=== PATIENT | male | born 1950 | race Caucasian/White ===

== ENCOUNTER 2016-04-22 11:11 | Emergency (ER) | payer MEDICARE, MEDICAID ==
--- NOTE | 2016-04-22 12:26 | CT ---
CT OF THE BRAIN WITHOUT CONTRAST: Date: 04/22/16 COMPARISON: None. HISTORY: Head injury with headache. TECHNIQUE: Multiple contiguous axial images were obtained in a CT of the brain without contrast. FINDINGS: The brain is normal in morphology and attenuation without focal lesions or confluent areas of infarc tion. There is no evidence of hydrocephalus, intracranial hemorrhage, or extra-axial fluid collectio n. The calvarium and overlying soft tissues are unremarkable. The visualized paranasal sinuses and mast oid air cells are well aerated. IMPRESSION: No evidence of acute intracranial abnormality. POS: [facility]
== END 2016-04-22 12:28 | disposition home or self-care (01) ==
LOC: MADERS 11:11
DX: S09.90XA Unspecified injury of head, initial encounter (principal); I10 Essential (primary) hypertension; J44.9 Chronic obstructive pulmonary disease, unspecified; F17.210 Nicotine dependence, cigarettes, uncomplicated; Z79.899 Other long term (current) drug therapy; W22.8XXA Striking against or struck by other objects, initial encounter
CPT/HCPCS: 70450

== ENCOUNTER 2016-04-30 20:59 | Emergency (ER) | payer MEDICARE, MEDICAID ==
[2016-04-30 21:29] LABS: #Basophils 0.1 thou/uL (0.0-0.2); #Eosinphils 0.3 thou/uL (0.0-0.7); #Lymphocytes 3.8 thou/uL (1.20-3.40); #Monocytes 1.5 thou/uL (0.11-0.59); #Neutrophils 9.6 thou/uL (1.40-6.50); %Basophils 0.5 % (0.0-1.0); %Eosinophils 1.9 % (0.0-10.0); %Lymphocytes 24.9 % (21.0-51.0); %Monocytes 9.7 % (0.0-10.0); Hemoglobin 14.8 g/dL (14.0-18.0); Mean Corpuscular HGB CONC 34.6 g/dL (32.0-36.0); Mean Corpuscular Hemoglobin 32.4 pg (27.0-31.0); Mean Corpuscular Volume 93.8 fl (80.0-94.0); Mean Platelet Volume 7.5 fL (7.4-10.4); Platelet Count 421 thou/uL (130-400); RBC Distribution Width 12.6 % (11.5-14.5); Red Blood Cell (RBC) Count 4.57 mill/uL (4.70-6.10); White Blood Cell (WBC) Count 15.2 thou/uL (4.8-10.8)
[2016-04-30 21:44] LABS: ALT (SGPT) 11 U/L (0-55); AST (SGOT) 18 U/L (5-34); Albumin 4.2 g/dL (3.4-4.8); Alkaline Phosphatase 101 U/L (40-150); Anion Gap 20 mmol/L (10-20); BUN (Urea Nitrogen) 12 mg/dL (8.4-25.7); Bilirubin, Total Less than 0.3 mg/dL (0.2-1.2); Calc. Creatinine Clearance 0 mL/min (70-130); Calcium 9.6 mg/dL (7.8-10.44); Carbon Dioxide 21 mmol/L (23-31); Chloride 100 mmol/L (98-107); Estimated GFR-MDRD 76; Globulin 3.7 g/dL (2.4-3.5); Glucose 119 mg/dL (80-115); Potassium 3.3 mmol/L (3.5-5.1); Protein, Total 7.9 g/dL (5.8-8.1); Sodium 138 mmol/L (136-145)
[2016-04-30 21:46] LABS: CKMB 1.6 ng/mL (0-6.6); Troponin I Less than 0.010 ng/mL (< 0.028)
--- NOTE | 2016-04-30 21:59 | RAD ---
EXAM: ONE VIEW CHEST 04/30/16 COMPARISON: 10/19/15 HISTORY: Dyspnea. FINDINGS: Portable upright chest: Normal cardiac silhouette. Pulmonary vessels and hilum are normal. The costophrenic angles are clear . Hyperinflation, without consolidation, or mass. No pneumothorax or osseous abnormality. IMPRESSION: Hyperinflation. Chronic changes. No acute cardiopulmonary process. POS: [facility]
[2016-04-30] MEDS ORDERED: predniSONE 20 MG TAB ONE (22:19)
[2016-04-30] MEDS ORDERED: Doxycycline 100 MG CAP ONE (22:19)
[2016-04-30] MEDS ORDERED: predniSONE 10 MG TAB ONE ×2 (22:21→22:22)
== END 2016-04-30 22:32 | disposition home or self-care (01) ==
LOC: MADERS 20:59
DX: J44.1 Chronic obstructive pulmonary disease with (acute) exacerbation (principal); J40 Bronchitis, not specified as acute or chronic; I10 Essential (primary) hypertension; F17.210 Nicotine dependence, cigarettes, uncomplicated; Z79.899 Other long term (current) drug therapy
CPT/HCPCS: 71010; 80053; 82553; 83880; 84484; 85025; 93005; J7506; J7512; J7620

== ENCOUNTER 2016-06-21 08:01 | Emergency (ER) | payer MEDICARE, MEDICAID ==
[2016-06-21 09:19] LABS: #Basophils 0.2 thou/uL (0.0-0.2); #Eosinphils 0.5 thou/uL (0.0-0.7); #Lymphocytes 1.6 thou/uL (1.20-3.40); #Neutrophils 8.7 thou/uL (1.40-6.50); %Basophils 1.4 % (0.0-1.0); %Lymphocytes 13.5 % (21.0-51.0); %Monocytes 8.3 % (0.0-10.0); %Neutrophils 72.7 % (42.0-75.0); ALT (SGPT) 19 U/L (0-55); AST (SGOT) 24 U/L (5-34); Albumin 4.1 g/dL (3.4-4.8); Alkaline Phosphatase 64 U/L (40-150); Anion Gap 14 mmol/L (10-20); BUN (Urea Nitrogen) 13 mg/dL (8.4-25.7); Bilirubin, Total 0.3 mg/dL (0.2-1.2); Calc. Creatinine Clearance 0 mL/min (70-130); Calcium 9.3 mg/dL (7.8-10.44); Carbon Dioxide 27 mmol/L (23-31); Chloride 107 mmol/L (98-107); Estimated GFR-MDRD 81; Globulin 2.9 g/dL (2.4-3.5); Glucose 131 mg/dL (80-115); Hemoglobin 15.1 g/dL (14.0-18.0); Mean Corpuscular HGB CONC 33.1 g/dL (32.0-36.0); Mean Corpuscular Hemoglobin 33.2 pg (27.0-31.0); Mean Corpuscular Volume 100.3 fl (80.0-94.0); Mean Platelet Volume 8.3 fL (7.4-10.4); Platelet Count 326 thou/uL (130-400); RBC Distribution Width 13.6 % (11.5-14.5); Red Blood Cell (RBC) Count 4.55 mill/uL (4.70-6.10); Sodium 144 mmol/L (136-145)
--- NOTE | 2016-06-21 09:35 | RAD ---
EXAM: CHEST 2 VIEWS: HISTORY: Dyspnea. COMPARISON: 04/30/16. FINDINGS: Normal cardiac silhouette. The pulmonary vessels and hilum are normal. Costophrenic angles are manda ar. Hyperinflation with chronic changes. No consolidation or mass. No pneumothorax or osseous abn ormalities. IMPRESSION: Hyperinflation. Chronic changes. POS: [facility]
== END 2016-06-21 10:05 | disposition home or self-care (01) ==
LOC: MADERS 08:01
DX: J44.1 Chronic obstructive pulmonary disease with (acute) exacerbation (principal); I10 Essential (primary) hypertension; F17.210 Nicotine dependence, cigarettes, uncomplicated; Z79.899 Other long term (current) drug therapy
CPT/HCPCS: 36415; 71020; 80053; 85025; J7620

== ENCOUNTER 2016-08-01 06:07 | Emergency (ER) | payer MEDICARE, MEDICAID ==
[2016-08-01] MEDS ORDERED: Sodium Chloride 0.9% 100 ML BAG ONE (06:28)
[2016-08-01] MEDS ORDERED: methylPREDNISolone Sod Succ/PF 125 MG/2 ML VIAL ONE (06:45)
[2016-08-01] MEDS ORDERED: Dexamethasone 10 MG/ML VIAL ONE (06:45)
[2016-08-01] MEDS ORDERED: cefTRIAXone\\ROCEPHIN 1 GM VIAL ONE (06:45)
[2016-08-01 07:09] LABS: #Basophils 0.1 thou/uL (0.0-0.2); #Eosinphils 0.2 thou/uL (0.0-0.7); #Lymphocytes 2.7 thou/uL (1.20-3.40); #Monocytes 1.2 thou/uL (0.11-0.59); %Basophils 0.7 % (0.0-1.0); %Eosinophils 2.4 % (0.0-10.0); %Lymphocytes 26.2 % (21.0-51.0); %Monocytes 11.6 % (0.0-10.0); Hemoglobin 15.2 g/dL (14.0-18.0); Mean Corpuscular HGB CONC 34.3 g/dL (32.0-36.0); Mean Corpuscular Hemoglobin 33.3 pg (27.0-31.0); Mean Corpuscular Volume 97.1 fl (80.0-94.0); Platelet Count 393 thou/uL (130-400); RBC Distribution Width 13.4 % (11.5-14.5); Red Blood Cell (RBC) Count 4.55 mill/uL (4.70-6.10); White Blood Cell (WBC) Count 10.1 thou/uL (4.8-10.8)
[2016-08-01 07:13] LABS: ALT (SGPT) 25 U/L (8-55); AST (SGOT) 20 U/L (5-34); Alkaline Phosphatase 61 U/L (40-150); Anion Gap 17 mmol/L (10-20); BUN (Urea Nitrogen) 15 mg/dL (8.4-25.7); Bilirubin, Total Less than 0.3 mg/dL (0.2-1.2); CK (CPK) 67 U/L (30-200); Calc. Creatinine Clearance 0 mL/min (70-130); Calcium 9.2 mg/dL (7.8-10.44); Carbon Dioxide 23 mmol/L (23-31); Chloride 109 mmol/L (98-107); Estimated GFR-MDRD 84; Globulin 2.7 g/dL (2.4-3.5); Glucose 89 mg/dL (80-115); Potassium 3.7 mmol/L (3.5-5.1); Protein, Total 6.7 g/dL (5.8-8.1); Sodium 145 mmol/L (136-145)
[2016-08-01 07:19] LABS: CKMB 1.8 ng/mL (0-6.6); Troponin I Less than 0.010 ng/mL (< 0.028)
--- NOTE | 2016-08-01 08:33 | RAD ---
CHEST 1 VIEW: HISTORY: Shortness of breath while on antibiotics and steroids for 1 week. COMPARISON: Chest 1 view 07/26/16. FINDINGS: Lungs are hyperinflated. No pneumothorax or effusion. No focal airspace consolidation or pneumotho rax. Cardiac silhouette and mediastinal contours are similar. IMPRESSION: Obstructive pulmonary disease without acute intrathoracic abnormality. POS: [facility]
== END 2016-08-01 08:30 | disposition home or self-care (01) ==
LOC: MADERS 06:07
DX: J44.1 Chronic obstructive pulmonary disease with (acute) exacerbation (principal); I10 Essential (primary) hypertension; F17.210 Nicotine dependence, cigarettes, uncomplicated; Z79.899 Other long term (current) drug therapy; Z79.82 Long term (current) use of aspirin; Z79.2 Long term (current) use of antibiotics
CPT/HCPCS: 36415; 71010; 80053; 82553; 83880; 84484; 85025; 93005; 94640; 94760; 96365; 96372; 96374; 96375; J0696; J1040; J1100; J2930; J7050; J7620

== ENCOUNTER 2016-08-05 05:51 | Emergency (ER) | payer MEDICARE, MEDICAID ==
[2016-08-05] MEDS ORDERED: Ondansetron HCl/PF 4 MG/2 ML Vial ONE (05:59)
[2016-08-05] MEDS ORDERED: methylPREDNISolone Sod Succ/PF 125 MG/2 ML VIAL ONE (05:59)
[2016-08-05] MEDS ORDERED: Albuterol Sulfate 2.5 mg/0.5 ml Neb ONE (06:00)
[2016-08-05 06:25] LABS: Hemoglobin 15.4 g/dL (14.0-18.0); Red Blood Cell (RBC) Count 4.78 mill/uL (4.70-6.10); White Blood Cell (WBC) Count 11.7 thou/uL (4.8-10.8)
[2016-08-05 06:26] LABS: Manual Diff?? YES; Mean Corpuscular HGB CONC 32.5 g/dL (32.0-36.0); Mean Corpuscular Hemoglobin 32.1 pg (27.0-31.0); Mean Corpuscular Volume 98.9 fL (80.0-94.0); Mean Platelet Volume 7.9 fL (7.4-10.4); Platelet Count 384 thou/uL (130-400); RBC Distribution Width 13.5 % (11.5-14.5)
[2016-08-05 06:29] LABS: Band 2 % (5-11); Eosinophils 1 % (0-10); Lymphocytes 14 % (21-51); MDiff Complete? YES; Monocytes 10 % (0-10); Neutrophil 73 % (42-75); PLT Morphology Comment Appears Adequate
[2016-08-05 06:30] LABS: Large Platelets SLIGHT; RBC Morphology Normal
[2016-08-05 06:31] LABS: ALT (SGPT) 21 U/L (8-55); AST (SGOT) 19 U/L (5-34); Albumin 4.4 g/dL (3.4-4.8); Alcohol 52 mg/dL (Less than 10); Alkaline Phosphatase 61 U/L (40-150); Anion Gap 18 mmol/L (10-20); BUN (Urea Nitrogen) 21 mg/dL (8.4-25.7); Bilirubin, Total Less than 0.3 mg/dL (0.2-1.2); Calc. Creatinine Clearance 0 mL/min (70-130); Calcium 9.4 mg/dL (7.8-10.44); Carbon Dioxide 24 mmol/L (23-31); Chloride 106 mmol/L (98-107); Estimated GFR-MDRD 70; Glucose 111 mg/dL (80-115); Protein, Total 7.4 g/dL (5.8-8.1); Sodium 144 mmol/L (136-145)
[2016-08-05 06:34] LABS: CKMB 3.6 ng/mL (0-6.6); Troponin I 0.021 ng/mL (< 0.028)
[2016-08-05] MEDS ORDERED: Magnesium Sulfate 2 GM/NS 0.9% 50 ML BAG ONE (07:05)
[2016-08-05] MEDS ORDERED: Sodium Chloride 0.9% 1,000 ML BAG ONE (07:36)
--- NOTE | 2016-08-05 08:04 | RAD ---
PORTABLE CHEST 1 VIEW: DATE: 08/05/16. TIME: 5:47 a.m. HISTORY: Dyspnea. FINDINGS: Comparison is made with the exam of 08/01/16. The heart size is normal. The lungs are hyperinflated without focal areas of consolidation, pneumot horax, or pleural effusions. IMPRESSION: Chronic obstructive pulmonary disease. No acute process. POS: [facility]
== END 2016-08-05 08:27 | disposition home or self-care (01) ==
LOC: MADERS 05:51
DX: J44.1 Chronic obstructive pulmonary disease with (acute) exacerbation (principal); I10 Essential (primary) hypertension; F17.210 Nicotine dependence, cigarettes, uncomplicated; Z79.82 Long term (current) use of aspirin; Z79.899 Other long term (current) drug therapy
CPT/HCPCS: 71010; 80053; 80307; 82553; 84484; 85025; 85379; 93005; 94640; 96361; 96365; 96375; J2405; J2930; J3475; J7050; J7611; J7620

== ENCOUNTER 2016-12-07 14:19 | Emergency (ER) | payer MEDICARE, MEDICAID ==
[2016-12-07] MEDS ORDERED: Acetaminophen/Codeine 30-300mg Tablet ONE (15:42)
--- NOTE | 2016-12-07 17:23 | CT ---
CT FACE NONCONTRAST: History: Right eye blurriness and blindness. FINDINGS: No comparison. The globes are intact. No orbital masses are apparent on the noncontrast enhanced CT. Visualized paranasal sinuses remain well aerated. No acute fracture or dislocation are apparent. IMPRESSION: No orbital abnormalities are apparent on noncontrast enhanced CT. POS: [facility]
== END 2016-12-07 17:24 | disposition home or self-care (01) ==
LOC: MADERS 14:19
DX: H57.11 Ocular pain, right eye (principal); I10 Essential (primary) hypertension; J44.9 Chronic obstructive pulmonary disease, unspecified; F17.210 Nicotine dependence, cigarettes, uncomplicated
CPT/HCPCS: 70486

== ENCOUNTER 2017-05-23 14:22 | Emergency (ER) | payer MEDICARE, MEDICAID ==
[2017-05-23] MEDS ORDERED: Magnesium Sulfate 2 GM/NS 0.9% 50 ML BAG ONE (14:39)
--- NOTE | 2017-05-23 15:23 | RAD ---
CHEST PA AND LATERAL: History: 66-year-old male with history of dyspnea. Comparison: 06-21-16 FINDINGS: Heart size is normal. Bilateral hyperinflation consistent with emphysema. No confluent pneumonia, ove rt edema, or pleural effusion. Stable from prior study. IMPRESSION: Stable hyperinflation and chronic lung changes. POS: [facility]
[2017-05-23] MEDS ORDERED: Azithromycin 500 MG VIAL ONE (15:53)
[2017-05-23 16:23] LABS: Hemoglobin 15.4 g/dL (14.0-18.0); Mean Corpuscular Hemoglobin 32.8 pg (27.0-31.0); Mean Corpuscular Volume 98.5 fL (80.0-94.0); White Blood Cell (WBC) Count 13.6 thou/uL (4.8-10.8)
[2017-05-23 16:24] LABS: Mean Corpuscular HGB CONC 33.3 g/dL (32.0-36.0); Platelet Count 302 thou/uL (130-400)
[2017-05-23 16:26] LABS: #Basophils 0.1 thou/uL (0.0-0.2); #Lymphocytes 0.6 thou/uL (1.20-3.40); #Monocytes 0.2 thou/uL (0.11-0.59); #Neutrophils 12.7 thou/uL (1.40-6.50); %Basophils 0.6 % (0.0-1.0); %Eosinophils 0.2 % (0.0-10.0); %Lymphocytes 4.4 % (21.0-51.0); %Monocytes 1.6 % (0.0-10.0); %Neutrophils 93.2 % (42.0-75.0); Manual Diff?? NO; Mean Platelet Volume 7.8 fL (7.4-10.4)
[2017-05-23 16:30] LABS: INR-International Normal Ratio 0.9; PTT 26.9 SEC (22.9-36.1); Prothrombin Time 12.4 SEC (12.0-14.7)
[2017-05-23 16:41] LABS: ALT (SGPT) 20 U/L (8-55); AST (SGOT) 29 U/L (5-34); Albumin 4.3 g/dL (3.4-4.8); Alkaline Phosphatase 71 U/L (40-150); Anion Gap 19 mmol/L (10-20); BUN (Urea Nitrogen) 13 mg/dL (8.4-25.7); Bilirubin, Total 0.3 mg/dL (0.2-1.2); Calc. Creatinine Clearance 0 mL/min (70-130); Calcium 9.5 mg/dL (7.8-10.44); Carbon Dioxide 24 mmol/L (23-31); Chloride 102 mmol/L (98-107); Estimated GFR-MDRD 84; Globulin 3.2 g/dL (2.4-3.5); Glucose 151 mg/dL (80-115); Potassium 4.7 mmol/L (3.5-5.1); Protein, Total 7.5 g/dL (5.8-8.1); Sodium 140 mmol/L (136-145)
[2017-05-23 16:44] LABS: CKMB 3.3 ng/mL (0-6.6)
[2017-05-23 18:52] LABS: Troponin I 0.013 ng/mL (< 0.028)
== END 2017-05-23 17:38 | disposition short-term general hospital (02) ==
LOC: MADERS 14:22
DX: J44.1 Chronic obstructive pulmonary disease with (acute) exacerbation (principal); R09.02 Hypoxemia; I10 Essential (primary) hypertension; F17.210 Nicotine dependence, cigarettes, uncomplicated; Z79.899 Other long term (current) drug therapy
CPT/HCPCS: 36415; 71046; 80053; 82553; 83880; 84484; 85025; 85610; 85730; 94760; 96365; 96367; J0456; J3475; J7050; J7620

== ENCOUNTER 2017-06-10 04:12 | Emergency (ER) | payer MEDICARE, MEDICAID ==
[2017-06-10 06:20] LABS: INR-International Normal Ratio 0.9; PTT 25.7 SEC (22.9-36.1); Prothrombin Time 12.1 SEC (12.0-14.7)
[2017-06-10] MEDS ORDERED: Magnesium Sulfate 2 GM/NS 0.9% 50 ML BAG ONE (06:21)
[2017-06-10] MEDS ORDERED: AMOXicillin 250 MG CAP ONE (06:21)
[2017-06-10] MEDS ORDERED: Dexamethasone 10 MG/ML VIAL ONE (06:21)
[2017-06-10] MEDS ORDERED: Benzonatate 100 MG CAP ONE (06:21)
[2017-06-10 06:23] LABS: ALT (SGPT) 20 U/L (8-55); AST (SGOT) 24 U/L (5-34); Albumin 3.9 g/dL (3.4-4.8); Alkaline Phosphatase 66 U/L (40-150); Anion Gap 17 mmol/L (10-20); BUN (Urea Nitrogen) 17 mg/dL (8.4-25.7); Bilirubin, Total 0.5 mg/dL (0.2-1.2); Calc. Creatinine Clearance 0 mL/min (70-130); Calcium 8.7 mg/dL (7.8-10.44); Carbon Dioxide 23 mmol/L (23-31); Chloride 108 mmol/L (98-107); Estimated GFR-MDRD 80; Globulin 2.8 g/dL (2.4-3.5); Glucose 123 mg/dL (80-115); Potassium 3.8 mmol/L (3.5-5.1); Protein, Total 6.7 g/dL (5.8-8.1); Sodium 144 mmol/L (136-145)
[2017-06-10 06:25] LABS: CKMB 3.7 ng/mL (0-6.6); Troponin I Less than 0.010 ng/mL (< 0.028)
[2017-06-10 06:26] LABS: #Neutrophils 17.1 thou/uL (1.40-6.50); %Basophils 0.8 % (0.0-1.0); %Eosinophils 0.9 % (0.0-10.0); %Lymphocytes 7.1 % (21.0-51.0); %Monocytes 1.8 % (0.0-10.0); %Neutrophils 89.5 % (42.0-75.0); Hemoglobin 14.1 g/dL (14.0-18.0); Mean Corpuscular HGB CONC 32.7 g/dL (32.0-36.0); Mean Corpuscular Hemoglobin 32.1 pg (27.0-31.0); Mean Corpuscular Volume 98.4 fL (80.0-94.0); Mean Platelet Volume 7.5 fL (7.4-10.4); Platelet Count 344 thou/uL (130-400); Red Blood Cell (RBC) Count 4.38 mill/uL (4.70-6.10); White Blood Cell (WBC) Count 19.1 thou/uL (4.8-10.8)
[2017-06-10 06:27] LABS: #Eosinphils 0.1 thou/uL (0.0-0.7); #Lymphocytes 1.3 thou/uL (1.20-3.40); #Monocytes 0.2 thou/uL (0.11-0.59)
--- NOTE | 2017-06-10 09:09 | RAD ---
PORTABLE CHEST 1 VIEW: Date: 06/10/17 Time: 0524 hours HISTORY: Dyspnea. FINDINGS: Comparison made with exam of 05/23/17. Changes of COPD are again seen. The heart size is normal. The lungs are well expanded without focal a reas of consolidation, pneumothorax, or pleural effusions. IMPRESSION: No acute process. POS: [facility]
== END 2017-06-10 07:37 | disposition short-term general hospital (02) ==
LOC: MADERS 04:12
DX: J44.1 Chronic obstructive pulmonary disease with (acute) exacerbation (principal); I10 Essential (primary) hypertension; J44.9 Chronic obstructive pulmonary disease, unspecified; F17.210 Nicotine dependence, cigarettes, uncomplicated
CPT/HCPCS: 71045; 80053; 82553; 83605; 83880; 84484; 85025; 85610; 85730; 87040; 87081; 87430; 87804; 93005; 96365; 96375; J1100; J3475; J7620

== ENCOUNTER 2017-06-26 05:15 | Emergency (ER) | payer MEDICARE, OTHER ==
[2017-06-26] MEDS ORDERED: cefTRIAXone\\ROCEPHIN 1 GM VIAL ONE (05:33)
[2017-06-26 05:38] LABS: #Basophils 0.2 thou/uL (0.0-0.2); #Eosinphils 0.2 thou/uL (0.0-0.7); #Monocytes 0.8 thou/uL (0.11-0.59); #Neutrophils 4.7 thou/uL (1.40-6.50); %Basophils 1.7 % (0.0-1.0); %Eosinophils 2.6 % (0.0-10.0); %Lymphocytes 33.6 % (21.0-51.0); %Monocytes 9.1 % (0.0-10.0); %Neutrophils 52.9 % (42.0-75.0); Hemoglobin 14.6 g/dL (14.0-18.0); Mean Corpuscular HGB CONC 35.1 g/dL (32.0-36.0); Mean Corpuscular Hemoglobin 32.3 pg (27.0-31.0); Mean Platelet Volume 6.5 fL (7.4-10.4); Platelet Count 319 thou/uL (130-400); Red Blood Cell (RBC) Count 4.53 mill/uL (4.70-6.10); White Blood Cell (WBC) Count 8.8 thou/uL (4.8-10.8)
[2017-06-26 05:50] LABS: Anion Gap 19 mmol/L (10-20); BUN (Urea Nitrogen) 19 mg/dL (8.4-25.7); Calc. Creatinine Clearance 0 mL/min (70-130); Calcium 9.2 mg/dL (7.8-10.44); Carbon Dioxide 19 mmol/L (23-31); Chloride 110 mmol/L (98-107); Estimated GFR-MDRD 70; Glucose 135 mg/dL (80-115); Potassium 3.6 mmol/L (3.5-5.1); Sodium 144 mmol/L (136-145)
[2017-06-26 06:08] LABS: CKMB 2.6 ng/mL (0-6.6); Troponin I Less than 0.010 ng/mL (< 0.028)
[2017-06-26] MEDS ORDERED: Sodium Chloride 0.9% 100 ML BAG ONE (07:16)
--- NOTE | 2017-06-26 07:43 | RAD ---
FRONTAL RADIOGRAPH CHEST: Date: 06/26/17 COMPARISON: 06/10/17. HISTORY: Dyspnea. FINDINGS: There is increased linear interstitial density and pulmonary hyperinflation suggesting COPD in the pr oper clinical setting. No pneumothorax, pleural fluid, lobar consolidation, or alveolar edema. IMPRESSION: Interstitial prominence and pulmonary hyperinflation as above. POS: [facility]
== END 2017-06-26 07:30 | disposition home or self-care (01) ==
LOC: MADERS 05:15
DX: J44.1 Chronic obstructive pulmonary disease with (acute) exacerbation (principal); I10 Essential (primary) hypertension; F17.210 Nicotine dependence, cigarettes, uncomplicated
CPT/HCPCS: 36415; 71045; 80048; 82553; 83880; 84484; 85025; 93005; 94640; 94644; 94760; 96365; J0696; J7050; J7620

== ENCOUNTER 2017-07-19 05:17 | Emergency (ER) | payer MEDICARE, MEDICAID ==
[2017-07-19] MEDS ORDERED: Azithromycin 200 MG/5 ML Oral Suspension ONE (05:37)
--- NOTE | 2017-07-19 09:05 | RAD ---
CHEST 1 VIEW: HISTORY: Dyspnea. COMPARISON: 06/26/17. FINDINGS: Cardiac silhouette is magnified by projection. Pulmonary vasculature unremarkable. Mediastinum midl ine. Lungs remain hyperinflated. No lobar consolidation or evidence of pneumothorax. IMPRESSION: Chronic obstructive pulmonary disease. POS: [facility]
== END 2017-07-19 07:30 | disposition home or self-care (01) ==
LOC: MADERS 05:17
DX: J44.1 Chronic obstructive pulmonary disease with (acute) exacerbation (principal); I10 Essential (primary) hypertension; F17.210 Nicotine dependence, cigarettes, uncomplicated; Z79.899 Other long term (current) drug therapy
CPT/HCPCS: 71045; J7620

== ENCOUNTER 2017-12-20 17:49 | Emergency (ER) | payer MEDICARE, MEDICAID ==
[~2017-12-20 17:49] MED LIST: Iopamidol 370 76% 100 ML VIAL ONE; Sodium Chloride 0.9% 100 ML BAG ONE
[2017-12-20 18:42] LABS: Band 1 % (5-11); Hemoglobin 15.4 g/dL (14.0-18.0); Lymphocytes 2 % (21-51); MDiff Complete? YES; Mean Corpuscular HGB CONC 31.9 g/dL (32.0-36.0); Mean Corpuscular Hemoglobin 30.3 pg (27.0-31.0); Mean Platelet Volume 7.5 fL (7.4-10.4); Metamyelocyte 1 % (0-0); Monocytes 6 % (0-10); Neutrophil 87 % (42-75); PLT Morphology Comment Appears Adequate; Platelet Count 353 thou/uL (130-400); RBC Distribution Width 15.8 % (11.5-14.5); RBC Morphology Normal; Reactive Lymphocytes 3 % (0-10); White Blood Cell (WBC) Count 19.1 thou/uL (4.8-10.8)
[2017-12-20 18:49] LABS: ALT (SGPT) 21 U/L (8-55); AST (SGOT) 24 U/L (5-34); Albumin 4.4 g/dL (3.4-4.8); Alkaline Phosphatase 74 U/L (40-150); Anion Gap 15 mmol/L (10-20); BUN (Urea Nitrogen) 10 mg/dL (8.4-25.7); Bilirubin, Total 0.7 mg/dL (0.2-1.2); Calc. Creatinine Clearance 0 mL/min (70-130); Calcium 9.8 mg/dL (7.8-10.44); Carbon Dioxide 25 mmol/L (23-31); Chloride 101 mmol/L (98-107); Estimated GFR-MDRD 78; Globulin 3.1 g/dL (2.4-3.5); Glucose 147 mg/dL (80-115); Lipase 11 U/L (8-78); Potassium 4.1 mmol/L (3.5-5.1); Protein, Total 7.5 g/dL (5.8-8.1); Sodium 137 mmol/L (136-145)
[2017-12-20 18:50] LABS: CKMB 1.7 ng/mL (0-6.6); Troponin I Less than 0.010 ng/mL (< 0.028)
--- NOTE | 2017-12-20 19:18 | CT ---
CT ABDOMEN AND PELVIS WITH IV CONTRAST: HISTORY: Abdominal pain. COMPARISON: 01/05/2016 FINDINGS: Hyperinflation of the lung bases is apparent. A small metallic fragment is again demonstrated within the subcutaneous tissues of the right side of the back, near the midline. Hyperdense stone within t he gallbladder lumen. The right kidney is surgically absent. There is calcification throughout the arterial structures. Lack of oral contrast limits evaluation of the bowel. No evidence of obstruction. The appendix is s lightly dilated, up to 0.9 cm, with mild wall thickening and subtle stranding in the adjacent fat. N o free air or free fluid. Fluid in right scrotum partially seen. IMPRESSION: 1. Noncomplicated acute appendicitis. 2. Cholelithiasis. 3. Atherosclerosis. 4. Partially visualized right hydrocele. Cause is not evident. POS: [facility]
[2017-12-20 19:20] LABS: Bilirubin Negative (Negative); Blood, Urine Trace (Negative); Clarity Clear (Clear); Glucose, Urine (Dipstick) Negative (Negative); Leukocyte Negative (Negative); Nitrite Negative (Negative); Protein, Urine (Dipstick) 30 mg/dL (Neg-Trace); Specific Gravity, Urine 1.025 (1.005-1.030); Urobilinogen 0.2 mg/dL (0.2-1.0)
[2017-12-20] MEDS ORDERED: Ampicillin/Sulbactam 3 GM VIAL ONE (19:25)
[2017-12-20 19:29] LABS: Bacteria/HPF Rare-Few HPF (None Seen); Sperm/HPF Rare HPF (None Seen); Squamous Epithelial 0-3 HPF (0-3); WBC/HPF 0-3 HPF (0-3)
== END 2017-12-20 20:00 | disposition short-term general hospital (02) ==
LOC: MADERS 17:49
DX: K35.80 Unspecified acute appendicitis (principal); I10 Essential (primary) hypertension; J44.9 Chronic obstructive pulmonary disease, unspecified; F17.210 Nicotine dependence, cigarettes, uncomplicated; Z79.899 Other long term (current) drug therapy
CPT/HCPCS: 74177; 80053; 81003; 81015; 82553; 83690; 84484; 85025; 93005; 94760; 96365; J0295; J7050

== ENCOUNTER 2018-03-20 13:58 | Emergency (ER) | payer MEDICARE, MEDICAID | END 2018-03-20 14:38 | disposition home or self-care (01) | LOC: MADERS 13:58 | DX: K04.7 Periapical abscess without sinus (principal); I10 Essential (primary) hypertension; J44.9 Chronic obstructive pulmonary disease, unspecified; F17.210 Nicotine dependence, cigarettes, uncomplicated; Z79.51 Long term (current) use of inhaled steroids; Z79.899 Other long term (current) drug therapy | CPT/HCPCS: 99283 ==

== ENCOUNTER 2018-05-27 07:32 | Emergency (ER) | payer MEDICARE, MEDICAID ==
[2018-05-27] MEDS ORDERED: Sodium Chloride 0.9% 250 ML 250 ML ONE (08:08)
[2018-05-27] MEDS ORDERED: Azithromycin 500 MG VIAL ONE (08:08)
[2018-05-27] MEDS ORDERED: Albuterol Sulfate 2.5 mg/0.5 ml Neb ONE ×2 (08:11→08:42)
[2018-05-27] MEDS ORDERED: Ipratropium Bromide 2.5 ml Neb ONE ×3 (08:11→08:42)
[2018-05-27 08:13] LABS: #Basophils 0.1 thou/uL (0.0-0.2); #Eosinphils 0.4 thou/uL (0.0-0.7); #Lymphocytes 2.2 thou/uL (1.20-3.40); #Monocytes 1.2 thou/uL (0.11-0.59); %Basophils 1.3 % (0.0-1.0); %Eosinophils 3.3 % (0.0-10.0); %Lymphocytes 19.8 % (21.0-51.0); %Monocytes 11.2 % (0.0-10.0); %Neutrophils 64.4 % (42.0-75.0); Hemoglobin 14.1 g/dL (14.0-18.0); Mean Corpuscular HGB CONC 31.4 g/dL (32.0-36.0); Mean Corpuscular Hemoglobin 31.4 pg (27.0-31.0); Mean Corpuscular Volume 99.9 fL (78.0-98.0); Mean Platelet Volume 7.2 fL (7.4-10.4); Platelet Count 370 thou/uL (130-400); RBC Distribution Width 13.8 % (11.5-14.5); Red Blood Cell (RBC) Count 4.49 mill/uL (4.70-6.10); White Blood Cell (WBC) Count 10.9 thou/uL (4.8-10.8)
--- NOTE | 2018-05-27 08:16 | RAD ---
SINGLE VIEW OF THE CHEST: COMPARISON: 07/19/2017. HISTORY: Dyspnea. FINDINGS: A single view of the chest shows a normal-size cardiomediastinal silhouette. There is hyperexpansion of the lungs and flattening of the hemidiaphragms consistent with COPD. There is no evidence of con solidation, mass, or pleural effusion. IMPRESSION: Chronic obstructive pulmonary disease without acute cardiopulmonary process. POS: [facility]
[2018-05-27] MEDS ORDERED: Nitroglycerin 2% Ointment 1 INCH/1 GM Packet ONE (08:22)
[2018-05-27 08:27] LABS: ALT (SGPT) 27 U/L (8-55); AST (SGOT) 28 U/L (5-34); Albumin 4.3 g/dL (3.4-4.8); Alkaline Phosphatase 82 U/L (40-150); Anion Gap 16 mmol/L (10-20); BUN (Urea Nitrogen) 14 mg/dL (8.4-25.7); Bilirubin, Total 0.7 mg/dL (0.2-1.2); Calc. Creatinine Clearance 0 mL/min (70-130); Calcium 9.1 mg/dL (7.8-10.44); Carbon Dioxide 25 mmol/L (23-31); Chloride 105 mmol/L (98-107); Estimated GFR-MDRD 71; Globulin 2.9 g/dL (2.4-3.5); Glucose 146 mg/dL (80-115); Potassium 3.8 mmol/L (3.5-5.1); Protein, Total 7.2 g/dL (5.8-8.1); Sodium 142 mmol/L (136-145)
[2018-05-27] MEDS ORDERED: Magnesium Sulfate 2 GM/NS 0.9% 50 ML BAG ONE (08:40)
== END 2018-05-27 09:57 | disposition left against medical advice (07) ==
LOC: MADERS 07:32
DX: J44.1 Chronic obstructive pulmonary disease with (acute) exacerbation (principal); R06.03 Acute respiratory distress; I10 Essential (primary) hypertension; F17.210 Nicotine dependence, cigarettes, uncomplicated; Z79.51 Long term (current) use of inhaled steroids; Z79.82 Long term (current) use of aspirin; Z79.899 Other long term (current) drug therapy
CPT/HCPCS: 71045; 80053; 83880; 84484; 85025; 87804; 93005; 96365; 96368; J0456; J3475; J7050; J7611; J7620

== ENCOUNTER 2018-06-17 04:06 | Emergency (ER) | payer MEDICARE, MEDICAID ==
[2018-06-17] MEDS ORDERED: Ondansetron PF 4 MG/2 ML Vial ONE (04:08)
[2018-06-17] MEDS ORDERED: Aspirin Chewable 81 MG TAB ONE (04:29)
[2018-06-17] MEDS ORDERED: cefTRIAXone\\ROCEPHIN 1 GM VIAL ONE (04:35)
[2018-06-17] MEDS ORDERED: Sodium Chloride 0.9% 100 ML ONE (04:37)
[2018-06-17 04:43] LABS: #Basophils 0.1 thou/uL (0.0-0.2); #Eosinphils 0.5 thou/uL (0.0-0.7); #Lymphocytes 2.8 thou/uL (1.20-3.40); #Monocytes 0.8 thou/uL (0.11-0.59); #Neutrophils 3.9 thou/uL (1.40-6.50); %Basophils 1.4 % (0.0-1.0); %Eosinophils 6.1 % (0.0-10.0); %Lymphocytes 34.7 % (21.0-51.0); %Neutrophils 47.9 % (42.0-75.0); Hemoglobin 13.7 g/dL (14.0-18.0); Mean Corpuscular HGB CONC 32.6 g/dL (32.0-36.0); Mean Corpuscular Hemoglobin 31.4 pg (27.0-31.0); Mean Corpuscular Volume 96.2 fL (78.0-98.0); Mean Platelet Volume 7.8 fL (7.4-10.4); Platelet Count 283 thou/uL (130-400); RBC Distribution Width 12.6 % (11.5-14.5); Red Blood Cell (RBC) Count 4.37 mill/uL (4.70-6.10); White Blood Cell (WBC) Count 8.1 thou/uL (4.8-10.8)
[2018-06-17 05:01] LABS: ALT (SGPT) 20 U/L (8-55); AST (SGOT) 28 U/L (5-34); Albumin 4.3 g/dL (3.4-4.8); Alkaline Phosphatase 81 U/L (40-150); Anion Gap 14 mmol/L (10-20); BUN (Urea Nitrogen) 20 mg/dL (8.4-25.7); Bilirubin, Total 0.3 mg/dL (0.2-1.2); Calc. Creatinine Clearance 0 mL/min (70-130); Calcium 9.1 mg/dL (7.8-10.44); Carbon Dioxide 26 mmol/L (23-31); Chloride 104 mmol/L (98-107); Estimated GFR-MDRD 50; Globulin 2.9 g/dL (2.4-3.5); Glucose 113 mg/dL (80-115); Potassium 4.5 mmol/L (3.5-5.1); Protein, Total 7.2 g/dL (5.8-8.1); Sodium 139 mmol/L (136-145)
[2018-06-17 07:28] LABS: Troponin I Less than 0.010 ng/mL (< 0.028)
--- NOTE | 2018-06-17 08:04 | RAD ---
CHEST 1 VIEW: COMPARISON: 05/27/2018. HISTORY: Dyspnea. FINDINGS: Normal cardiac silhouette. The pulmonary vessels and hilum are normal. Costophrenic angles are shadi r. Lungs are hyperinflated, without consolidation or mass. No pneumothorax or acute osseous abnorma lities. IMPRESSION: Hyperinflation. Chronic obstructive pulmonary disease. No acute cardiopulmonary process. POS: [facility]
== END 2018-06-17 07:57 | disposition home or self-care (01) ==
LOC: MADERS 04:06
DX: J44.1 Chronic obstructive pulmonary disease with (acute) exacerbation (principal); R07.9 Chest pain, unspecified; I10 Essential (primary) hypertension; F17.210 Nicotine dependence, cigarettes, uncomplicated; Z79.899 Other long term (current) drug therapy; Z79.82 Long term (current) use of aspirin
CPT/HCPCS: 36415; 71045; 80053; 83605; 83880; 84484; 85025; 87040; 87804; 93005; 94760; 96365; 96375; J0696; J2405; J3490

== ENCOUNTER 2018-07-05 00:55 | Emergency (ER) | payer MEDICARE, MEDICAID ==
[2018-07-05] MEDS ORDERED: Azithromycin 500 MG VIAL ONE (01:27)
[2018-07-05 01:30] LABS: #Basophils 0.2 thou/uL (0.0-0.2); #Eosinphils 0.4 thou/uL (0.0-0.7); #Lymphocytes 2.1 thou/uL (1.20-3.40); #Monocytes 0.9 thou/uL (0.11-0.59); #Neutrophils 6.4 thou/uL (1.40-6.50); %Basophils 1.6 % (0.0-1.0); %Eosinophils 3.7 % (0.0-10.0); %Lymphocytes 20.7 % (21.0-51.0); %Monocytes 9.2 % (0.0-10.0); %Neutrophils 64.8 % (42.0-75.0); Hemoglobin 13.9 g/dL (14.0-18.0); Mean Corpuscular HGB CONC 32.8 g/dL (32.0-36.0); Mean Corpuscular Hemoglobin 31.8 pg (27.0-31.0); Mean Platelet Volume 7.1 fL (7.4-10.4); Platelet Count 331 thou/uL (130-400); Red Blood Cell (RBC) Count 4.39 mill/uL (4.70-6.10); White Blood Cell (WBC) Count 9.9 thou/uL (4.8-10.8)
[2018-07-05 01:46] LABS: ALT (SGPT) 22 U/L (8-55); AST (SGOT) 23 U/L (5-34); Albumin 4.3 g/dL (3.4-4.8); Alkaline Phosphatase 71 U/L (40-150); Anion Gap 13 mmol/L (10-20); BUN (Urea Nitrogen) 14 mg/dL (8.4-25.7); Calc. Creatinine Clearance 0 mL/min (70-130); Calcium 9.6 mg/dL (7.8-10.44); Carbon Dioxide 25 mmol/L (23-31); Chloride 108 mmol/L (98-107); Estimated GFR-MDRD 80; Globulin 2.9 g/dL (2.4-3.5); Glucose 96 mg/dL (80-115); Potassium 4.2 mmol/L (3.5-5.1); Protein, Total 7.2 g/dL (5.8-8.1); Sodium 142 mmol/L (136-145)
[2018-07-05 01:54] LABS: Bilirubin, Total 0.5 mg/dL (0.2-1.2)
--- NOTE | 2018-07-05 08:40 | RAD ---
CHEST ONE VIEW: Indication: History of dyspnea. Comparison: 06-17-18 FINDINGS: There is diffuse hyperinflation of the lungs. Heart size is relatively normal. No pleural effusion, p neumothorax or evident. No acute osseous abnormality is evident. IMPRESSION: 1. Hyperinflation without infiltrate. 2. No pleural effusion or pneumothorax. POS: [facility]
== END 2018-07-05 14:31 | disposition home or self-care (01) ==
LOC: MADERS 00:55
DX: J44.1 Chronic obstructive pulmonary disease with (acute) exacerbation (principal); I10 Essential (primary) hypertension; F17.210 Nicotine dependence, cigarettes, uncomplicated; Z79.82 Long term (current) use of aspirin; Z79.51 Long term (current) use of inhaled steroids; Z79.899 Other long term (current) drug therapy
CPT/HCPCS: 36415; 71045; 80053; 83880; 84484; 85025; 93005; 96365; J0456; J7050; J7620

== ENCOUNTER 2018-07-20 13:57 | Emergency (ER) | payer MEDICARE, MEDICAID ==
[2018-07-20] MEDS ORDERED: Dexamethasone 4 MG TAB ONE (14:34)
--- NOTE | 2018-07-20 14:46 | RAD ---
PORTABLE CHEST 1 VIEW: Date: 07/20/18 Time: 1425 hours HISTORY: Dyspnea. FINDINGS: Comparison made with exam from 07/05/18. The heart size is normal. The lungs remain hyperinflated. No focal areas of consolidation, pneumothor aces, or pleural effusions are seen. IMPRESSION: No acute process. POS: [facility]
== END 2018-07-20 15:29 | disposition home or self-care (01) ==
LOC: MADERS 13:57
DX: J44.1 Chronic obstructive pulmonary disease with (acute) exacerbation (principal); I10 Essential (primary) hypertension; F17.210 Nicotine dependence, cigarettes, uncomplicated; Z79.51 Long term (current) use of inhaled steroids; Z79.82 Long term (current) use of aspirin; Z79.899 Other long term (current) drug therapy
CPT/HCPCS: 71045; 93005; J7620; J8540

== ENCOUNTER 2018-10-01 18:11 | Emergency (ER) | payer MEDICARE, MEDICAID | END 2018-10-01 18:43 | disposition home or self-care (01) | LOC: MADERS 18:11 | DX: T63.461A Toxic effect of venom of wasps, accidental (unintentional), initial encounter (principal); I10 Essential (primary) hypertension; J44.9 Chronic obstructive pulmonary disease, unspecified; F17.210 Nicotine dependence, cigarettes, uncomplicated; Z79.82 Long term (current) use of aspirin; Z79.51 Long term (current) use of inhaled steroids; Z79.899 Other long term (current) drug therapy | CPT/HCPCS: 99282 ==

== ENCOUNTER 2019-03-17 15:04 | Emergency (ER) | payer MEDICARE, OTHER | END 2019-03-17 15:48 | disposition home or self-care (01) | LOC: MADERS 15:04 | DX: I10 Essential (primary) hypertension (principal); J44.9 Chronic obstructive pulmonary disease, unspecified; F17.210 Nicotine dependence, cigarettes, uncomplicated; Z79.82 Long term (current) use of aspirin; Z79.899 Other long term (current) drug therapy; Z79.51 Long term (current) use of inhaled steroids | CPT/HCPCS: 99283 ==

== ENCOUNTER 2019-11-30 04:38 | Inpatient (IN) | payer MEDICARE, MEDICAID, OTHER ==
[2019-11-30] MEDS ORDERED: cefTRIAXone\\ROCEPHIN 1 GM VIAL ONE (05:15)
[2019-11-30] MEDS ORDERED: Sodium Chloride 0.9% 100 ML ONE ×2 (05:15→06:00)
[2019-11-30] MEDS ORDERED: Sodium Chloride 0.9% 1,000 ML ONE ×2 (05:15→07:14)
[2019-11-30] MEDS ORDERED: Albuterol Sulfate 2.5 mg/0.5 ml Neb ONE (05:15)
[2019-11-30] MEDS ORDERED: methylPREDNISolone Sod Succ/PF 125 MG/2 ML VIAL ONE (05:23)
[2019-11-30] MEDS ORDERED: Aspirin Chewable 81 MG TAB ONE (05:23)
[2019-11-30] MEDS ORDERED: Magnesium 2 GM/50 ML BAG (IN WATER) ONE (05:23)
[2019-11-30 05:25] LABS: #Basophils 0.2 thou/uL (0.0-0.2); #Eosinphils 0.4 thou/uL (0.0-0.7); #Lymphocytes 2.3 thou/uL (1.20-3.40); #Monocytes 1.1 thou/uL (0.11-0.59); #Neutrophils 7.7 thou/uL (1.40-6.50); %Basophils 1.9 % (0.0-1.0); %Eosinophils 3.6 % (0.0-10.0); %Lymphocytes 19.2 % (21.0-51.0); %Monocytes 9.5 % (0.0-10.0); %Neutrophils 65.7 % (42.0-75.0); Hemoglobin 13.1 g/dL (14.0-18.0); Mean Corpuscular HGB CONC 31.3 g/dL (32.0-36.0); Mean Corpuscular Hemoglobin 31.6 pg (27.0-31.0); Mean Corpuscular Volume 100.9 fL (78.0-98.0); Mean Platelet Volume 6.7 fL (7.4-10.4); Platelet Count 393 thou/uL (130-400); RBC Distribution Width 13.6 % (11.5-14.5); Red Blood Cell (RBC) Count 4.15 mill/uL (4.70-6.10); White Blood Cell (WBC) Count 11.7 thou/uL (4.8-10.8)
[2019-11-30 05:41] LABS: ALT (SGPT) 13 U/L (8-55); AST (SGOT) 23 U/L (5-34); Albumin 4.2 g/dL (3.4-4.8); Alkaline Phosphatase 71 U/L (40-110); Anion Gap 20 mmol/L (10-20); BUN (Urea Nitrogen) 15 mg/dL (8.4-25.7); Bilirubin, Total 0.3 mg/dL (0.2-1.2); CK (CPK) 80 U/L (30-200); Calc. Creatinine Clearance 0 mL/min (70-130); Calcium 9.1 mg/dL (7.8-10.44); Carbon Dioxide 24 mmol/L (23-31); Chloride 103 mmol/L (98-107); Estimated GFR-MDRD 67; Globulin 2.9 g/dL (2.4-3.5); Glucose 123 mg/dL (80-115); Protein, Total 7.1 g/dL (5.8-8.1); Sodium 143 mmol/L (136-145)
[2019-11-30] MEDS ORDERED: Azithromycin 500 MG VIAL ONE (06:00)
[2019-11-30 06:42] LABS: Bilirubin Negative (Negative); Blood, Urine Trace (Negative); Clarity Clear (Clear); Glucose, Urine (Dipstick) Negative (Negative); Ketone, Urine Negative (Negative); Leukocyte Negative (Negative); Nitrite Negative (Negative); Protein, Urine (Dipstick) 30 mg/dL (Neg-Trace); Urobilinogen 0.2 mg/dL (Less than 2); pH, Urine 5.5 (5.0-9.0)
[2019-11-30 06:44] LABS: RBC/HPF 0-3 HPF (0-3); WBC/HPF 0-3 HPF (0-3)
[2019-11-30 06:45] LABS: Bacteria/HPF Rare-Few HPF (None Seen); Squamous Epithelial 0-3 HPF (0-3)
[2019-11-30 06:52] LABS: CKMB 2.5 ng/mL (0-6.6)
--- NOTE | 2019-11-30 07:52 | RAD ---
EXAM: Single view of the chest HISTORY: Dyspnea COMPARISON: 07/20/2018 FINDINGS: Single view of the chest shows a normal sized cardiomediastinal silhouette. Hyperexpansion of the lungs is consistent with COPD. There is no evidence of consolidation, mass, or pleural effusion. No acute osseous abnormality. IMPRESSION: COPD without evidence of acute cardiopulmonary disease
[2019-11-30] MEDS ORDERED: Acetaminophen 325 MG TAB PO PRN (08:26)
[2019-11-30] MEDS ORDERED: Ondansetron ODT 4 MG TAB PO PRN (08:27)
[2019-11-30] MEDS ORDERED: Ondansetron PF 4 MG/2 ML Vial IVP PRN (08:27)
[2019-11-30] MEDS ORDERED: Sodium Chloride 0.9% 1,000 ML IV SCH (08:30)
[2019-11-30 09:57] VITALS: BMI 17.6
[2019-11-30] MEDS: methylPREDNISolone Sod Succ/PF 125 MG/2 ML VIAL IVP SCH ×3 (10:27→21:45)
[2019-11-30] MEDS ORDERED: Lisinopril 20 MG TAB PO SCH (13:15)
[2019-11-30] MEDS ORDERED: Hydrochlorothiazide 25 MG TAB PO SCH (13:15)
[2019-11-30 13:54] LABS: Troponin I 0.061 ng/mL (< 0.028)
[2019-11-30] MEDS: Albuterol 200 PUFF (6.7GM INHALER) INH SCH ×2 (17:40→23:35)
[2019-11-30 18:54] LABS: Troponin I 0.054 ng/mL (< 0.028)
[2019-12-01] MEDS ORDERED: Lorazepam 0.5 MG TAB PO SCH (00:45)
[2019-12-01] MEDS ORDERED: Lorazepam 2 MG/ML VIAL SLOW IVP SCH (01:15)
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
[2019-12-01] MEDS: Albuterol 200 PUFF (6.7GM INHALER) INH SCH (05:42)
[2019-12-01] MEDS ORDERED: cefTRIAXone\\ROCEPHIN 1 GM in Sodium Chloride 0.9% 100 ML IVPB SCH (06:00)
[2019-12-01] MEDS ORDERED: Azithromycin 500 MG in Sodium Chloride 0.9% 250 ML 250 ML IVPB SCH (07:00)
[2019-12-01] MEDS ORDERED: Azithromycin 250 MG TAB PO ONE (08:00)
[2019-12-01] MEDS ORDERED: predniSONE 20 MG TAB PO SCH (08:00)
[2019-12-01 08:31] VITALS: BP 129/71
[2019-12-01 08:53] VITALS: TEMP 97.8
[2019-12-01] MEDS ORDERED: Hydrochlorothiazide 25 MG TAB PO SCH (09:00)
[2019-12-01] MEDS ORDERED: Aspirin 81 mg Enteric Coated Tablet PO SCH (09:00)
[2019-12-01] MEDS ORDERED: Lisinopril 20 MG TAB PO SCH (09:00)
[2019-12-01] MEDS ORDERED: Cefdinir 300 MG CAP PO SCH (09:00)
[2019-12-01 12:01] LABS: SARS-CoV-2 MS2 Positive; SARS-CoV-2 N Gene Negative; SARS-CoV-2 S Gene Negative; SARS-CoV-2 by NAA Not Detected (NotDetected); SARS-CoV-2 orf1ab Negative
[2019-12-01] MEDS ORDERED: Mometasone Furoate 120 PUFF 220 MCG INH SCH (18:30)
--- NOTE | 2019-12-06 02:58 | DIS ---
DATE OF ADMISSION: 11/30/2019 DATE OF DISCHARGE: 12/01/2019 ADMITTING ATTENDING: Cristina Howe MD DISCHARGE ATTENDING: Cristina Howe MD PRIMARY CARE PROVIDER: Cristina Howe MD PRIMARY DIAGNOSES: 1. Acute chronic obstructive pulmonary disease exacerbation. 2. Alcohol abuse. SECONDARY DIAGNOSES: 1. Hypertension. 2. Tobacco abuse. 3. Anxiety and depression. 4. Hyperlipidemia. CONSULTS: None. PROCEDURES: Chest x-ray that showed COPD without evidence of acute cardiopulmonary disease. DISCHARGE MEDICATIONS: 1. Azithromycin 250 mg p.o. daily. 2. Omnicef 300 mg p.o. b.i.d., x5 days. 3. Prednisone 40 mg p.o. daily x5 days. 4. Hydrochlorothiazide 50 mg p.o. daily. 5. Sertraline 50 mg p.o. daily. 6. Aspirin 81 mg p.o. daily. 7. Lisinopril 40 mg p.o. daily. 8. Anoro Ellipta 62.5/25 mcg one puff inhaled daily. 9. Albuterol HFA one puff inhaled q.4 hours p.r.n. DISCONTINUED MEDICATIONS: None. HISTORY OF PRESENT ILLNESS: The patient is a 69-year-old male, who presented to the emergency department with severe shortness of breath. He was initially placed on BiPAP and received two additional medications for COPD exacerbation. He experienced significant improvement in symptoms and was admitted for continued monitoring. Overnight, the patient did have some symptoms consistent with acute alcohol withdrawal. He was treated with Ativan and did have some improvement. The patient's alcohol abuse was discussed and he does not express any desire to quit at this time. Tobacco cessation was also discussed. At the time of discharge, the patient did express significant improvement in his respiratory status and was back to baseline per patient's self report. Outpatient followup arranged prior to discharge. The patient was seen and examined on the date of discharge. PHYSICAL EXAMINATION: VITAL SIGNS: Temperature 97.7, pulse 86, respirations 20, oxygen 97% on room air, blood pressure 144/77. GENERAL: The patient is alert, and oriented, in no distress. He is resting comfortably in bed. HEENT: Extraocular muscles intact. Moist mucous membranes. CARDIOVASCULAR: Regular rate and rhythm. No murmurs, rubs, or gallops. LUNGS: Clear to auscultation bilaterally. No wheezes, rhonchi, or crackles. EXTREMITIES: No edema noted. DISPOSITION: Stable. DISCHARGE INSTRUCTIONS: 1. Location: Home. 2. Followup. The patient has outpatient followup with his primary care provider, Dr. Cristina Howe MD on December 10. 3. Diet: Heart healthy. 4. Activity: Ad payton. Job ID: [id number] MTDD
== END 2019-12-01 10:56 | disposition home or self-care (01) | DRG 191 ==
LOC: MADERS 04:38 → MADMS 07:20
PROVIDERS: ADMIT Family Medicine; ATTEND Family Medicine
PROC: 5A09357 Assistance with Respiratory Ventilation, Less than 24 Consecutive Hours, Continuous Positive Airway Pressure (ICD-10-PCS; principal; 2019-11-30)
DX: J44.1 Chronic obstructive pulmonary disease with (acute) exacerbation (principal); I24.8 Other forms of acute ischemic heart disease; I10 Essential (primary) hypertension; Z96.1 Presence of intraocular lens; F41.9 Anxiety disorder, unspecified; F32.9 Major depressive disorder, single episode, unspecified; E78.5 Hyperlipidemia, unspecified; Z20.828 Contact with and (suspected) exposure to other viral communicable diseases; F17.210 Nicotine dependence, cigarettes, uncomplicated; Z98.890 Other specified postprocedural states; Z98.41 Cataract extraction status, right eye; Z90.49 Acquired absence of other specified parts of digestive tract; Z90.5 Acquired absence of kidney; Z98.42 Cataract extraction status, left eye
CPT/HCPCS: 36415; 71045; 80053; 81003; 81015; 82550; 82553; 83605; 84484; 85025; 87040; 87086; 87635; 93005; 94640; 94660; 94760; 96365; 96366; 96367; 96375; J0456; J0696; J2060; J2930; J3475; J3490; J7050; J7512; J7611; J7620; U0003

== ENCOUNTER 2020-02-28 10:01 | Emergency (ER) | payer MEDICARE, MEDICAID ==
[2020-02-28] MEDS ORDERED: methylPREDNISolone Sod Succ/PF 125 MG/2 ML VIAL ONE (10:30)
[2020-02-28] MEDS ORDERED: Sodium Chloride 0.9% 100 ML ONE (10:30)
[2020-02-28] MEDS ORDERED: cefTRIAXone\\ROCEPHIN 2 GM VIAL ONE (10:30)
--- NOTE | 2020-02-28 10:38 | RAD ---
RADIOGRAPH CHEST 1 VIEW: DATE: 02/28/2020 HISTORY: 69-year-old male with dyspnea FINDINGS: There is hyperinflation of the lungs, consistent with COPD. There is no evidence of airspace density, pulmonary edema, or pneumothorax. The lateral costophrenic angles are not effaced. Cardiomediastinal silhouette is narrowed because of the pulmonary hyperinflation. IMPRESSION: 1) No acute cardiopulmonary findings. 2) emphysema.
[2020-02-28 10:50] LABS: #Basophils 0.2 thou/uL (0.0-0.2); #Eosinphils 0.2 thou/uL (0.0-0.7); #Lymphocytes 1.1 thou/uL (1.20-3.40); #Monocytes 1.2 thou/uL (0.11-0.59); #Neutrophils 10.2 thou/uL (1.40-6.50); %Basophils 1.5 % (0.0-1.0); %Eosinophils 1.6 % (0.0-10.0); %Lymphocytes 8.8 % (21.0-51.0); %Monocytes 9.1 % (0.0-10.0); %Neutrophils 79.1 % (42.0-75.0); Hemoglobin 14.9 g/dL (14.0-18.0); Mean Corpuscular HGB CONC 32.3 g/dL (32.0-36.0); Mean Corpuscular Hemoglobin 31.9 pg (27.0-31.0); Mean Corpuscular Volume 98.8 fL (78.0-98.0); Platelet Count 321 thou/uL (130-400); RBC Distribution Width 13.5 % (11.5-14.5); Red Blood Cell (RBC) Count 4.68 mill/uL (4.70-6.10); White Blood Cell (WBC) Count 12.8 thou/uL (4.8-10.8)
[2020-02-28 11:14] LABS: ALT (SGPT) 21 U/L (8-55); AST (SGOT) 25 U/L (5-34); Albumin 4.6 g/dL (3.4-4.8); Alkaline Phosphatase 65 U/L (40-110); Anion Gap 20 mmol/L (10-20); BUN (Urea Nitrogen) 26 mg/dL (8.4-25.7); Bilirubin, Total 0.2 mg/dL (0.2-1.2); CK (CPK) 96 U/L (30-200); Calc. Creatinine Clearance 0 mL/min (70-130); Calcium 9.5 mg/dL (7.8-10.44); Carbon Dioxide 21 mmol/L (23-31); Chloride 105 mmol/L (98-107); Globulin 3.3 g/dL (2.4-3.5); Glucose 141 mg/dL (80-115); Potassium 4.1 mmol/L (3.5-5.1); Protein, Total 7.9 g/dL (5.8-8.1); Sodium 142 mmol/L (136-145)
[2020-02-28 11:25] LABS: CKMB 4.9 ng/mL (0-6.6)
[2020-02-28 15:19] LABS: CKMB 6.5 ng/mL (0-6.6)
== END 2020-02-28 15:50 | disposition short-term general hospital (02) ==
LOC: MADERS 10:01
DX: J44.1 Chronic obstructive pulmonary disease with (acute) exacerbation (principal); R79.89 Other specified abnormal findings of blood chemistry; I21.4 Non-ST elevation (NSTEMI) myocardial infarction; K02.9 Dental caries, unspecified; I10 Essential (primary) hypertension; F17.210 Nicotine dependence, cigarettes, uncomplicated; D64.9 Anemia, unspecified; Z79.899 Other long term (current) drug therapy; Z85.72 Personal history of non-Hodgkin lymphomas; Z79.82 Long term (current) use of aspirin; Z79.51 Long term (current) use of inhaled steroids
CPT/HCPCS: 71045; 80053; 82550; 82553; 84484; 85025; 93005; 94760; 96365; 96375; J0696; J2930; J3490; J7620

== ENCOUNTER 2020-06-01 06:21 | Emergency (ER) | payer MEDICARE, MEDICAID ==
[2020-06-01 07:11] LABS: #Basophils 0.1 thou/uL (0.0-0.2); #Lymphocytes 0.7 thou/uL (1.20-3.40); #Monocytes 0.4 thou/uL (0.11-0.59); %Basophils 0.5 % (0.0-1.0); %Eosinophils 0.1 % (0.0-10.0); %Lymphocytes 4.8 % (21.0-51.0); %Monocytes 2.5 % (0.0-10.0); %Neutrophils 92.1 % (42.0-75.0); Hemoglobin 12.3 g/dL (14.0-18.0); Mean Corpuscular HGB CONC 31.3 g/dL (32.0-36.0); Mean Corpuscular Hemoglobin 29.9 pg (27.0-31.0); Mean Corpuscular Volume 95.6 fL (78.0-98.0); Mean Platelet Volume 7.8 fL (7.4-10.4); Platelet Count 398 thou/uL (130-400); RBC Distribution Width 13.4 % (11.5-14.5); Red Blood Cell (RBC) Count 4.13 mill/uL (4.70-6.10); White Blood Cell (WBC) Count 15.2 thou/uL (4.8-10.8)
[2020-06-01 07:30] LABS: ALT (SGPT) 19 U/L (8-55); AST (SGOT) 25 U/L (5-34); Albumin 4.2 g/dL (3.4-4.8); Alkaline Phosphatase 68 U/L (40-110); Anion Gap 26 mmol/L (10-20); BUN (Urea Nitrogen) 19 mg/dL (8.4-25.7); Bilirubin, Total 0.4 mg/dL (0.2-1.2); Calc. Creatinine Clearance 0 mL/min (70-130); Calcium 9.5 mg/dL (7.8-10.44); Carbon Dioxide 16 mmol/L (23-31); Chloride 103 mmol/L (98-107); Globulin 2.8 g/dL (2.4-3.5); Glucose 144 mg/dL (80-115); Potassium 4.4 mmol/L (3.5-5.1); Sodium 141 mmol/L (136-145)
[2020-06-01 08:09] LABS: CKMB 7.2 ng/mL (0-6.6)
== END 2020-06-01 09:12 | disposition left against medical advice (07) ==
LOC: MADERS 06:21
DX: J44.1 Chronic obstructive pulmonary disease with (acute) exacerbation (principal); R74.8 Abnormal levels of other serum enzymes; E87.2 Acidosis; I10 Essential (primary) hypertension; F17.210 Nicotine dependence, cigarettes, uncomplicated; Z79.82 Long term (current) use of aspirin; Z79.51 Long term (current) use of inhaled steroids; Z79.899 Other long term (current) drug therapy
CPT/HCPCS: 36415; 71046; 80053; 82553; 83880; 84484; 85025; 93005; 94760; J7620

== ENCOUNTER 2020-06-05 18:53 | Emergency (ER) | payer MEDICARE, MEDICAID ==
[2020-06-05] MEDS ORDERED: cefTRIAXone\\ROCEPHIN 1 GM VIAL ONE (19:08)
[2020-06-05] MEDS ORDERED: Azithromycin 500 MG VIAL ONE (19:08)
[2020-06-05] MEDS ORDERED: Sodium Chloride 0.9% 250 ML 250 ML ONE (19:08)
[2020-06-05 19:27] LABS: #Basophils 0.1 thou/uL (0.0-0.2); #Lymphocytes 0.8 thou/uL (1.20-3.40); #Monocytes 0.1 thou/uL (0.11-0.59); %Basophils 0.6 % (0.0-1.0); %Lymphocytes 7.8 % (21.0-51.0); %Monocytes 1.4 % (0.0-10.0); %Neutrophils 90.1 % (42.0-75.0); Hemoglobin 12.5 g/dL (14.0-18.0); Mean Corpuscular HGB CONC 30.5 g/dL (32.0-36.0); Mean Corpuscular Hemoglobin 30.2 pg (27.0-31.0); Mean Platelet Volume 9.5 fL (7.4-10.4); Platelet Count 464 thou/uL (130-400); RBC Distribution Width 14.3 % (11.5-14.5); Red Blood Cell (RBC) Count 4.16 mill/uL (4.70-6.10)
[2020-06-05] MEDS ORDERED: Morphine 2 MG/ML VIAL ONE (19:43)
[2020-06-05 19:46] LABS: ALT (SGPT) 25 U/L (8-55); AST (SGOT) 28 U/L (5-34); Albumin 4.2 g/dL (3.4-4.8); Alkaline Phosphatase 63 U/L (40-110); Anion Gap 18 mmol/L (10-20); BUN (Urea Nitrogen) 20 mg/dL (8.4-25.7); Bilirubin, Total 0.3 mg/dL (0.2-1.2); CK (CPK) 50 U/L (30-200); Calc. Creatinine Clearance 0 mL/min (70-130); Carbon Dioxide 22 mmol/L (23-31); Chloride 104 mmol/L (98-107); Globulin 2.4 g/dL (2.4-3.5); Glucose 228 mg/dL (80-115); Potassium 4.9 mmol/L (3.5-5.1); Protein, Total 6.6 g/dL (5.8-8.1); Sodium 139 mmol/L (136-145)
[2020-06-05] MEDS ORDERED: Sodium Chloride 0.9% 2,000 ML ONE (19:46)
[2020-06-05 20:01] LABS: CKMB 3.3 ng/mL (0-6.6)
== END 2020-06-05 20:30 | disposition short-term general hospital (02) ==
LOC: MADERS 18:53
DX: J44.1 Chronic obstructive pulmonary disease with (acute) exacerbation (principal); I10 Essential (primary) hypertension; F17.210 Nicotine dependence, cigarettes, uncomplicated; Z79.899 Other long term (current) drug therapy; Z79.82 Long term (current) use of aspirin
CPT/HCPCS: 71045; 80053; 82550; 82553; 83605; 84484; 85025; 87040; 93005; 94660; 94760; J2270; 36415; 96365; 96374; 96375; J0456; J0696; J7050; J7620

== ENCOUNTER 2020-06-26 23:37 | Emergency (ER) | payer MEDICARE, MEDICAID ==
[2020-06-27] MEDS ORDERED: Magnesium 2 GM/50 ML BAG (IN WATER) ONE (00:09)
[2020-06-27] MEDS ORDERED: Nitroglycerin 2% Ointment 1 INCH/1 GM Packet ONE (00:09)
[2020-06-27 00:24] LABS: #Basophils 0.1 thou/uL (0.0-0.2); #Eosinphils 0.4 thou/uL (0.0-0.7); #Lymphocytes 1.4 thou/uL (1.20-3.40); %Eosinophils 3.3 % (0.0-10.0); %Lymphocytes 11.1 % (21.0-51.0); %Monocytes 7.4 % (0.0-10.0); %Neutrophils 77.3 % (42.0-75.0); Hemoglobin 11.3 g/dL (14.0-18.0); Mean Corpuscular HGB CONC 31.7 g/dL (32.0-36.0); Mean Corpuscular Hemoglobin 30.3 pg (27.0-31.0); Mean Corpuscular Volume 95.7 fL (78.0-98.0); Platelet Count 293 thou/uL (130-400); RBC Distribution Width 14.2 % (11.5-14.5); Red Blood Cell (RBC) Count 3.72 mill/uL (4.70-6.10); White Blood Cell (WBC) Count 12.9 thou/uL (4.8-10.8)
[2020-06-27 00:44] LABS: ALT (SGPT) 16 U/L (8-55); AST (SGOT) 20 U/L (5-34); Albumin 3.8 g/dL (3.4-4.8); Alkaline Phosphatase 59 U/L (40-110); Anion Gap 13 mmol/L (10-20); BUN (Urea Nitrogen) 16 mg/dL (8.4-25.7); Bilirubin, Total Less than 0.2 mg/dL (0.2-1.2); Calc. Creatinine Clearance 0 mL/min (70-130); Calcium 8.5 mg/dL (7.8-10.44); Carbon Dioxide 24 mmol/L (23-31); Chloride 111 mmol/L (98-107); Globulin 2.5 g/dL (2.4-3.5); Glucose 115 mg/dL (80-115); Potassium 4.8 mmol/L (3.5-5.1); Protein, Total 6.3 g/dL (5.8-8.1); Sodium 143 mmol/L (136-145)
== END 2020-06-27 00:11 | disposition short-term general hospital (02) ==
LOC: MADERS 23:37
DX: J44.1 Chronic obstructive pulmonary disease with (acute) exacerbation (principal); I10 Essential (primary) hypertension; F17.210 Nicotine dependence, cigarettes, uncomplicated; Z79.82 Long term (current) use of aspirin; Z79.899 Other long term (current) drug therapy; Z79.51 Long term (current) use of inhaled steroids
CPT/HCPCS: 36415; 71045; 80053; 83880; 84484; 85025; 93005; 96365; J3475

== ENCOUNTER 2020-06-30 04:38 | Emergency (ER) | payer MEDICARE, MEDICAID ==
[2020-06-30] MEDS ORDERED: Magnesium 2 GM/50 ML BAG (IN WATER) ONE (06:53)
[2020-06-30 11:17] LABS: Hemoglobin 11.6 g/dL (14.0-18.0); Mean Corpuscular HGB CONC 30.6 g/dL (32.0-36.0); Mean Corpuscular Hemoglobin 29.2 pg (27.0-31.0); Mean Corpuscular Volume 95.5 fL (78.0-98.0); Mean Platelet Volume 9.6 fL (7.4-10.4); Platelet Count 316 thou/uL (130-400); RBC Distribution Width 14.3 % (11.5-14.5); Red Blood Cell (RBC) Count 3.98 mill/uL (4.70-6.10); White Blood Cell (WBC) Count 13.2 thou/uL (4.8-10.8)
[2020-06-30 11:18] LABS: #Basophils 0.1 thou/uL (0.0-0.2); #Eosinphils 0.1 thou/uL (0.0-0.7); #Lymphocytes 2.8 thou/uL (1.20-3.40); #Monocytes 1.3 thou/uL (0.11-0.59); %Basophils 0.5 % (0.0-1.0); %Eosinophils 0.4 % (0.0-10.0); %Lymphocytes 21.4 % (21.0-51.0); %Monocytes 9.6 % (0.0-10.0); Manual Diff?? NO
[2020-06-30 11:20] LABS: Anion Gap 17 mmol/L (10-20); BUN (Urea Nitrogen) 20 mg/dL (8.4-25.7); Bilirubin, Total 0.2 mg/dL (0.2-1.2); Calc. Creatinine Clearance 0 mL/min (70-130); Calcium 8.7 mg/dL (7.8-10.44); Carbon Dioxide 25 mmol/L (23-31); Chloride 106 mmol/L (98-107); Glucose 134 mg/dL (80-115); Potassium 4.5 mmol/L (3.5-5.1); Sodium 143 mmol/L (136-145)
[2020-06-30 11:21] LABS: ALT (SGPT) 25 U/L (8-55); AST (SGOT) 29 U/L (5-34); Albumin 4.2 g/dL (3.4-4.8); Alkaline Phosphatase 56 U/L (40-110); CK (CPK) 74 U/L (30-200); Globulin 2.6 g/dL (2.4-3.5); Protein, Total 6.8 g/dL (5.8-8.1)
== END 2020-06-30 06:25 | disposition short-term general hospital (02) ==
LOC: MADERS 04:38
DX: J96.90 Respiratory failure, unspecified, unspecified whether with hypoxia or hypercapnia (principal)
CPT/HCPCS: 36415; 71045; 80053; 82550; 83880; 84484; 85025; J3475; J7620

== ENCOUNTER 2020-08-30 05:19 | Emergency (ER) | payer MEDICARE, MEDICAID ==
[2020-08-30] MEDS ORDERED: Albuterol Sulfate 2.5 mg/0.5 ml Neb ONE ×2 (05:46→05:50)
[2020-08-30 06:14] LABS: ALT (SGPT) 12 U/L (8-55); AST (SGOT) 19 U/L (5-34); Albumin 3.7 g/dL (3.4-4.8); Alkaline Phosphatase 56 U/L (40-110); Anion Gap 13 mmol/L (10-20); BUN (Urea Nitrogen) 8 mg/dL (8.4-25.7); Bilirubin, Total Less than 0.2 mg/dL (0.2-1.2); Calc. Creatinine Clearance 0 mL/min (70-130); Calcium 8.6 mg/dL (7.8-10.44); Carbon Dioxide 25 mmol/L (23-31); Chloride 110 mmol/L (98-107); Globulin 2.4 g/dL (2.4-3.5); Glucose 110 mg/dL (80-115); Hemoglobin 10.8 g/dL (14.0-18.0); MDiff Complete? YES; Manual Diff?? YES; Mean Corpuscular HGB CONC 30.6 g/dL (32.0-36.0); Mean Corpuscular Hemoglobin 29.2 pg (27.0-31.0); Mean Corpuscular Volume 95.7 fL (78.0-98.0); Mean Platelet Volume 8.5 fL (7.4-10.4); Platelet Count 414 thou/uL (130-400); Protein, Total 6.1 g/dL (5.8-8.1); RBC Distribution Width 18.1 % (11.5-14.5); Red Blood Cell (RBC) Count 3.71 mill/uL (4.70-6.10); Sodium 144 mmol/L (136-145); White Blood Cell (WBC) Count 7.4 thou/uL (4.8-10.8)
[2020-08-30 06:15] LABS: Anisocytosis SLIGHT = 6-15 cells (100X) (0-5/hpf); Band 2 % (5-11); Eosinophils 1 % (0-10); Lymphocytes 40 % (21-51); Monocytes 7 % (0-10); Neutrophil 50 % (42-75); Platelet Morphology Comment Appears Increased
== END 2020-08-30 07:26 | disposition short-term general hospital (02) ==
LOC: MADERS 05:19
DX: J44.1 Chronic obstructive pulmonary disease with (acute) exacerbation (principal); D64.9 Anemia, unspecified; I10 Essential (primary) hypertension; F17.210 Nicotine dependence, cigarettes, uncomplicated
CPT/HCPCS: 36415; 71045; 80053; 83605; 84484; 85025; 93005; 94660; J7611